=== PATIENT | male | born 2000 | race Caucasian/White ===

== ENCOUNTER 2019-03-26 15:19 | Emergency (ER) | payer BC ==
[~2019-03-26] VITALS: Ht 177.8 cm; Wt 65.8 kg
[2019-03-29 00:06] LABS: CHLAMYDIA TRACHOMATIS, NAA Negative (Negative); NEISSERIA GONORRHOEAE, NAA Negative (Negative)
== END 2019-03-26 16:15 | disposition home or self-care (01) ==
LOC: ER 15:19
PROVIDERS: Physician Assistant
DX: R36.9 Urethral discharge, unspecified (principal); R30.0 Dysuria
CPT/HCPCS: 87491; 87591; 96372; 99283-25; J0696

== ENCOUNTER 2023-03-11 14:59 | Emergency (ER) | payer BC ==
[~2023-03-11] VITALS: Ht 172.7 cm; Wt 72.6 kg
[2023-03-11 15:11] VITALS: BP 163/91
[2023-03-11] MEDS ORDERED: CYCL10 PO (16:24)
== END 2023-03-11 16:34 | disposition home or self-care (01) ==
LOC: ER 14:59
DX: S49.92XA Unspecified injury of left shoulder and upper arm, initial encounter (principal); X50.1XXA Overexertion from prolonged static or awkward postures, initial encounter
CPT/HCPCS: 73030; 99283-25